=== PATIENT | male | born 1965 | race Caucasian/White ===

== ENCOUNTER 2016-10-17 19:12 | Observation (INO) | payer OTHER ==
--- NOTE | 2016-10-17 20:07 | EDPHY ---
H & P Time Seen by Provider: 10/17/16 20:03 HPI/ROS: CHIEF COMPLAINT: Right hand wound. HISTORY OF PRESENT ILLNESS: The patient is a 50-year-old male who presents with right hand swelling and erythema surrounding an open wound on the proximal aspect of the 2nd finger that he noticed last night at 2200. He is unsure if he was bit by an insect but did see a strange-looking spider at work recently. He does have drainage from the wound and the hand is sore to the touch. He has not checked for fever. He visited Urgent Care who sent him to the ED due to red streaking up his arm. He admits having recent cold symptoms. He denies vomiting or other complaints. REVIEW OF SYSTEMS: A complete 10-point review of systems was performed and is negative except for those items mentioned in the HPI. Past Medical/Surgical History: Denies. Social History: Nonsmoker, works with [employer]. Smoking Status: Never smoked Physical Exam: General Appearance: Alert, no distress Eyes: Pupils equal and round, no conjunctival pallor or injection ENT, Mouth: Mucous membranes moist Neck: Normal inspection Respiratory: Lungs are clear to auscultation Cardiovascular: Regular rate and rhythm Gastrointestinal: Abdomen is soft and non- tender Neurological: A&O, nonfocal, normal gait Skin: Warm and dry, no rash Extremities: Nontender, no pedal edema. Right hand: Open wound at index finger MCP with small amount of drainage. No fluctuance. Surrounding erythema 6cm in width. Red streak extends up to the armpit. Psychiatric: Mood and affect normal Constitutional: Initial Vital Signs Temperature (C) 37.3 C 10/17/16 19:39 Heart Rate 85 10/17/16 19:39 Respiratory Rate 16 10/17/16 19:39 Blood Pressure 129/87 H 10/17/16 19:39 O2 Sat (%) 95 10/17/16 19:39 O2 Delivery Mode Room Air Allergies/Adverse Reactions: No Known Allergies Allergy (Unverified 10/17/16 19:39) Home Medications: Medication Instructions Recorded Doxycycline Hyclate 100 mg PO BID #20 tab 10/18/16 Medical Decision Making ED Course/Re-evaluation: This patient presents with cellulitis and lymphangitis. An IV was established and labs ordered. Blood cultures were drawn. 1gm IV Ancef administered. He meets SIRS criteria, but not the severe sepsis protocol. Initial serum lactate is 0.9. 2041: Consulted with Dr. Keita, hospitalist. She accepts admission. Differential Diagnosis: Differential diagnosis includes though it is not limited to necrotizing fasciitis, DVT, neurovascular compromise, severe sepsis. - Data Points Laboratory Results: Laboratory Results 10/17/16 20:04 10/17/16 20:04 Microbiology Results: MICROBIOLOGY 10/17/16 20:04 Hand - Swab Gram Stain - Final 10/17/16 20:04 Hand - Swab Wound Culture - Preliminary Streptococcus Pyogenes Grp A Staphylococcus Aureus 10/17/16 20:24 Blood Blood Culture - Preliminary 10/17/16 20:04 Blood Blood Culture - Preliminary Medications Given: Discontinued Medications Cefazolin Sodium/Dextrose (Ancef 1 Gm (Premix)) 50 mls @ 200 mls/hr IV EDNOW ONE PRN Reason: Protocol Stop: 10/17/16 20:46 Last Admin: 10/17/16 20:39 Dose: 50 mls Cefazolin Sodium/Dextrose (Ancef 2 Gm (Premix)) 100 mls @ 200 mls/hr IV Q8HRS EMELI PRN Reason: Protocol Stop: 11/17/16 05:59 Last Admin: 10/18/16 05:26 Dose: 100 mls Sodium Chloride (Ns) 1,000 mls @ 150 mls/hr IV CONT EMELI Stop: 04/15/17 22:44 Last Admin: 10/18/16 05:26 Dose: 1,000 mls Departure - Departure Disposition: [facility] Inpatient Acute Clinical Impression: Cellulitis of hand Condition: Fair Report Scribed for: Kathi Blanco Report Scribed by: Rom Caballero Date of Report: 10/17/16 Time of Report: 20:07 Physician Review and Approval Statement: 10/17/16 20:07 Portions of this note were transcribed by a medical office representative. I personally performed a history, physical exam, medical decision making, and confirmed accuracy of information the transcribed note.
[2016-10-17 20:41] LABS: % IMMATURE GRANULYOCYTES 0.3 % (0.0-1.1); ABSOLUTE IMMATURE GRANULOCYTES 0.03 10^3/uL (0.00-0.10); ADD DIFF? NO; ADD MORPH? NO; ADD SCAN? NO; ATYPICAL LYMPHOCYTE FLAG 10 (0-99); FRAGMENT RBC FLAG 0 (0-99); HEMATOCRIT 44.9 % (40.0-51.0); HEMOGLOBIN 15.5 g/dL (13.7-17.5); LEFT SHIFT FLG 0 (0-99); LIPEMIA HEMOLYSIS FLAG 90 (0-99); MEAN CELL HEMOGLOBIN 32.1 pg (27.9-34.1); MEAN CELL HEMOGLOBIN CONCENTR. 34.5 g/dL (32.4-36.7); MEAN PLATELET VOLUME 9.9 fL (8.7-11.7); PLATELET CLUMPS FLAG 0 (0-99); PLATELET COUNT 273 10^3/uL (150-400); RED BLOOD CELL COUNT 4.83 10^6/uL (4.40-6.38); RED CELL DISTRIBUTION WIDTH 11.9 % (11.5-15.2)
[2016-10-17 20:50] LABS: ANION GAP 9 mEq/L (8-16); CALCIUM 9.4 mg/dL (8.5-10.4); CARBON DIOXIDE 29 mEq/l (22-31); CHLORIDE 101 mEq/L (97-110); CREATININE 1.2 mg/dL (0.7-1.3); GLOMERULAR FILTRATION RATE > 60; GLUCOSE 115 mg/dL (70-100); POTASSIUM 4.3 mEq/L (3.5-5.2); SODIUM 139 mEq/L (134-144)
[2016-10-17] MEDS ORDERED: IBUPROFEN 200 MG TAB PO PRN (22:36)
[2016-10-17] MEDS ORDERED: ACETAMINOPHEN 325 MG TAB PO PRN (22:36)
[2016-10-17] MEDS ORDERED: oxyCODONE IR 5 MG TAB PO PRN (22:36)
[2016-10-17] MEDS ORDERED: ONDANSETRON DISINTEGRATING 4 MG TAB PO PRN (22:36)
[2016-10-17] MEDS ORDERED: ONDANSETRON 4 MG/2 ML VIAL IVP PRN (22:36)
--- NOTE | 2016-10-17 23:53 | PDGENHP ---
History and Physical - Chief Complaint Acute hand pain - History of Present Illness PCP: Dr. Mcarthur HPI: 50-year-old male presenting with acute hand pain located in the right lateral hand at the MCP with associated swelling and erythema as well as lymphangitis streaking up his right upper extremity. He denies any overt fever or chills. He reports the onset of symptoms was on the evening prior to presentation the duration has been persistent and evolving since that time. The pain was exacerbated with by the application of lotion on the evening prior to presentation and has been somewhat alleviated after he received antibiotics in the emergency department. Pain was characterized as a burning sensation. He denies trauma to the affected area and denies pain with range of motion. History Information - Allergies/Home Medication List Allergies/Adverse Reactions: No Known Allergies Allergy (Unverified 10/17/16 19:39) Home Medications: NK [No Known Home Meds] 10/17/16 [Last Taken Unknown] I have personally reviewed and updated: family history, medical history, social history, surgical history - Past Medical History no pertinent PMH - Surgical History Reports: no pertinent surgical hx - Family History Additional family history: No family history of MRSA - Social History Smoking Status: Never smoked Alcohol Use: Occasionally Drug Use: None Additional social history: Patient works as a trade embalmer, 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 to blood or bodily fluid Review of Systems ROS: 10pt was reviewed & negative except for what was stated in HPI & below Skin: Reports: other (Pain, redness, swelling right hand) Physical Exam Temp Pulse Resp BP Pulse Ox 36.6 C 75 16 145/86 H 96 10/17/16 21:00 10/17/16 21:15 10/17/16 21:15 10/17/16 21:15 10/17/16 21:15 Constitutional: no apparent distress, appears nourished, not in pain Eyes: PERRL, anicteric sclera, EOMI Ears, Nose, Mouth, Throat: moist mucous membranes, hearing normal, ears appear normal, no oral mucosal ulcers Cardiovascular: regular rate and rhythym, no murmur, rub, or gallop, No edema Respiratory: no respiratory distress, no rales or rhonchi, clear to auscultation Gastrointestinal: normoactive bowel sounds, soft, non-tender abdomen, no palpable masses Skin: other (Erythema on the dorsal lateral aspect of his right hand with central ulceration, no evidence of exudate, lymphangitic streaking up his right upper extremity) Musculoskeletal: other (Normal range of motion of the right MCP as well as right DIP and right wrist) Neurologic: AAOx3, sensation intact bilaterally, No weakness Psychiatric: interacting appropriately, not anxious, not encephalopathic, thought process linear Lab Data & Imaging Review 10/17/16 20:04 10/17/16 20:04 WBC 9.53 10^3/uL (3.80-9.50) H 10/17/16 20:04 RBC 4.83 10^6/uL (4.40-6.38) 10/17/16 20:04 Hgb 15.5 g/dL (13.7-17.5) 10/17/16 20:04 Hct 44.9 % (40.0-51.0) 10/17/16 20:04 MCV 93.0 fL (81.5-99.8) 10/17/16 20:04 MCH 32.1 pg (27.9-34.1) 10/17/16 20:04 MCHC 34.5 g/dL (32.4-36.7) 10/17/16 20:04 RDW 11.9 % (11.5-15.2) 10/17/16 20:04 Plt Count 273 10^3/uL (150-400) 10/17/16 20:04 MPV 9.9 fL (8.7-11.7) 10/17/16 20:04 Neut % (Auto) 69.7 % (39.3-74.2) 10/17/16 20:04 Lymph % (Auto) 19.4 % (15.0-45.0) 10/17/16 20:04 [place] % (Auto) 8.7 % (4.5-13.0) 10/17/16 20:04 Eos % (Auto) 1.4 % (0.6-7.6) 10/17/16 20:04 Baso % (Auto) 0.5 % (0.3-1.7) 10/17/16 20:04 Nucleat RBC Rel Count 0.0 % (0.0-0.2) 10/17/16 20:04 Absolute Neuts (auto) 6.64 10^3/uL (1.70-6.50) H 10/17/16 20:04 Absolute Lymphs (auto) 1.85 10^3/uL (1.00-3.00) 10/17/16 20:04 Absolute Monos (auto) 0.83 10^3/uL (0.30-0.80) H 10/17/16 20:04 Absolute Eos (auto) 0.13 10^3/uL (0.03-0.40) 10/17/16 20:04 Absolute Basos (auto) 0.05 10^3/uL (0.02-0.10) 10/17/16 20:04 Absolute Nucleated RBC 0.00 10^3/uL (0-0.01) 10/17/16 20:04 Immature Gran % 0.3 % (0.0-1.1) 10/17/16 20:04 Immature Gran # 0.03 10^3/uL (0.00-0.10) 10/17/16 20:04 VBG Lactic Acid 0.9 mmol/L (0.7-2.1) 10/17/16 21:25 Sodium 139 mEq/L (134-144) 10/17/16 20:04 Potassium 4.3 mEq/L (3.5-5.2) 10/17/16 20:04 Chloride 101 mEq/L (97-110) 10/17/16 20:04 Carbon Dioxide 29 mEq/l (22-31) 10/17/16 20:04 Anion Gap 9 mEq/L (8-16) 10/17/16 20:04 BUN 18 mg/dL (7-23) 10/17/16 20:04 Creatinine 1.2 mg/dL (0.7-1.3) 10/17/16 20:04 Estimated GFR > 60 10/17/16 20:04 Glucose 115 mg/dL (70-100) H 10/17/16 20:04 Calcium 9.4 mg/dL (8.5-10.4) 10/17/16 20:04 Assessment & Plan Assessment: 50-year-old male presents with acute cellulitis Plan: 1. Cellulitis. Acute, new problem this provider, further workup is indicated. Evidenced by localized swelling, erythema, tenderness, higher severity of illness and potential for bacteremia given his lymphangitis streaking -no evidence of joint involvement -reviewed outside records, including ED report by Dr. Blanco 10/17/16, reports she sent blood cultures to rule out bacteremia -discussed with Dr. Keita, she has reported to me that the patient received Ancef in the emergency department, will continue Ancef to cover staph and streptococcal organisms at this time given no history of exposure to MRSA -if patient's lymphangitic streaking is improved in the a.m. as well as symptomatic relief and no evidence of bacteremia, the patient can be safely transitioned to oral antibiotics with close outpatient follow-up 2. Hyperglycemia. Most likely reactive in the setting of cellulitis Diet. Regular Prophylaxis. Low risk patient, SCDs Code. Full Disposition. Anticipated discharge is 10/18/2016, pending further workup and treatment as outlined above.
[2016-10-17] MEDS: NS 1,000 ML IV SCH (23:54)
[2016-10-18 05:03] LABS: % IMMATURE GRANULYOCYTES 0.3 % (0.0-1.1); ABSOLUTE IMMATURE GRANULOCYTES 0.02 10^3/uL (0.00-0.10); ADD DIFF? NO; ADD MORPH? NO; ADD SCAN? NO; ATYPICAL LYMPHOCYTE FLAG 40 (0-99); FRAGMENT RBC FLAG 0 (0-99); HEMATOCRIT 40.3 % (40.0-51.0); HEMOGLOBIN 13.7 g/dL (13.7-17.5); LEFT SHIFT FLG 0 (0-99); LIPEMIA HEMOLYSIS FLAG 90 (0-99); MEAN CELL HEMOGLOBIN 31.4 pg (27.9-34.1); MEAN CELL VOLUME 92.4 fL (81.5-99.8); MEAN PLATELET VOLUME 10.1 fL (8.7-11.7); PLATELET CLUMPS FLAG 10 (0-99); PLATELET COUNT 219 10^3/uL (150-400); RED BLOOD CELL COUNT 4.36 10^6/uL (4.40-6.38); RED CELL DISTRIBUTION WIDTH 11.9 % (11.5-15.2)
[2016-10-18 05:14] LABS: ANION GAP 9 mEq/L (8-16); CALCIUM 8.8 mg/dL (8.5-10.4); CARBON DIOXIDE 24 mEq/l (22-31); CHLORIDE 108 mEq/L (97-110); GLOMERULAR FILTRATION RATE > 60; GLUCOSE 102 mg/dL (70-100); POTASSIUM 4.2 mEq/L (3.5-5.2); SODIUM 141 mEq/L (134-144)
[2016-10-18 05:18] VITALS: O2SAT 92
[2016-10-18] MEDS: NS 1,000 ML IV SCH (05:26)
[2016-10-18] MEDS ORDERED: ceFAZolin 2 GM/DEXTROSE 100 ML IV SCH (06:00)
[2016-10-18 07:45] VITALS: BP 127/72; PULSE 71; RESP 16; TEMP 98.4
--- NOTE | 2016-10-19 04:20 | GDS ---
[f rep st] DISCHARGE SUMMARY DISCHARGE DIAGNOSIS: Right hand cellulitis. HISTORY OF PRESENT ILLNESS: A 50-year-old male presenting with acute right hand pain, erythema and s treaking. For details of the patient's initial presentation, please see the history and physical sunil ed 10/17/2016. HOSPITAL COURSE BY ISSUE: Acute right hand cellulitis. Patient was initiated on IV antibiotics, as he was noted to have not only erythema of the dorsum of his hand but additional streaking up his righ t arm. The patient was admitted, started on IV antibiotics and had prompt improvement in both the st reaking and erythema as well as mobility of his right hand and decrease in his pain. On the day of h is disposition, patient was feeling markedly well, no systemic symptoms. Was transitioned to oral an tibiotics and discharged home. He is to follow before the completion of his antibiotic regimen which was written for 10 days for evaluation by his primary care provider for agreement on completion of h is antibiotic course. MEDICATIONS AT THE TIME OF TRANSFER: Please reference medication reconciliation printed on 7. FOLLOWUP APPOINTMENTS: For this patient include with his PCP in 7-10 days for his first post dischar ge followup and evaluation of his improvement in cellulitis. PENDING STUDIES: At the time of this dictation include blood cultures which are pending, no growth t o date at the time of his disposition. I spent greater than 30 minutes in the planning and coordination of this discharge. /[id number]/MODL
== END 2016-10-18 10:15 | disposition home or self-care (01) ==
LOC: F2W 21:54
PROVIDERS: ADMIT Internal Medicine; ATTEND Internal Medicine
DX: L03.113 Cellulitis of right upper limb (principal)
CPT/HCPCS: G0378 ×2; 96374; J0690